=== PATIENT | female | born 1965 | race Caucasian/White ===

== ENCOUNTER 2024-03-20 17:54 | Emergency (ER) | payer SELFPAY ==
[2024-03-20] MEDS: Acetaminophen/HYDROcodone 325-5 MG Tab PO ONE (19:15)
[2024-03-20 21:15] VITALS: BP 186/99; PULSE 75
== END 2024-03-20 20:31 | disposition home or self-care (01) ==
LOC: MW.ED 17:54
DX: S83.91XA Sprain of unspecified site of right knee, initial encounter (principal); Z88.2 Allergy status to sulfonamides; Z75.8 Other problems related to medical facilities and other health care
CPT/HCPCS: 73562; 99283; A9270